=== PATIENT | female | born 1950 | race Caucasian/White ===

== ENCOUNTER 2017-04-27 14:15 | Inpatient (IN) | payer OTHER, MEDICAID ==
[2017-04-27] MEDS ORDERED: IOPAMIDOL (ISOVUE-300) 100 ML BTL ONE (14:34)
[2017-04-27 14:38] LABS: ADD DIFF? YES; ADD MORPH? NO; ADD SCAN? NO; ATYPICAL LYMPHOCYTE FLAG 10 (0-99); FRAGMENT RBC FLAG 0 (0-99); HEMATOCRIT 41.5 % (38.0-47.0); HEMOGLOBIN 13.5 g/dL (12.6-16.3); LEFT SHIFT FLG 30 (0-99); LIPEMIA HEMOLYSIS FLAG 80 (0-99); MEAN CELL HEMOGLOBIN 31.3 pg (27.9-34.1); MEAN CELL HEMOGLOBIN CONCENTR. 32.5 g/dL (32.4-36.7); MEAN CELL VOLUME 96.1 fL (81.5-99.8); PLATELET CLUMPS FLAG 0 (0-99); PLATELET COUNT 309 10^3/uL (150-400); RED BLOOD CELL COUNT 4.32 10^6/uL (4.18-5.33); RED CELL DISTRIBUTION WIDTH 14.1 % (11.5-15.2)
[2017-04-27 14:45] LABS: ANION GAP 11 mEq/L (8-16); CALCIUM 9.6 mg/dL (8.5-10.4); CARBON DIOXIDE 26 mEq/l (22-31); CHLORIDE 103 mEq/L (97-110); ETHANOL SERUM < 10 mg/dL (0-10); GLOMERULAR FILTRATION RATE 56; GLUCOSE 84 mg/dL (70-100); POTASSIUM 4.5 mEq/L (3.5-5.2); SODIUM 140 mEq/L (134-144)
[2017-04-27 14:47] LABS: INR 0.99 (0.83-1.16)
[2017-04-27 14:48] LABS: APTT 43.4 SEC (23.0-38.0)
[2017-04-27] MEDS ORDERED: fentaNYL 100 MCG/2 ML INJ ONE (15:13)
[2017-04-27] MEDS ORDERED: fentaNYL 100 MCG/2 ML INJ IVP ONE ×2 (15:15→15:40)
[2017-04-27 15:35] LABS: PLATELET ESTIMATE ADEQUATE (ADEQ)
[2017-04-27] MEDS ORDERED: TETANUS, DIPHTHERIA TOX (7YR+) 0.5 ML INJ IM ONE (15:38)
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
[2017-04-27] MEDS: NS 1,000 ML IV ONE ×2 (17:00→17:01)
[2017-04-27] MEDS ORDERED: FLUTICASONE NASAL 120 SPRAYS/16 GM MDI EACHNARE PRN (17:51)
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
[2017-04-27] MEDS ORDERED: IBANDRONATE SODIUM 150 MG PO SCH (18:00)
[2017-04-27] MEDS ORDERED: ONDANSETRON 4 MG/2 ML VIAL IVP PRN (18:02)
[2017-04-27] MEDS ORDERED: NALOXONE HCL 0.4 MG/ML INJ IVP PRN (18:02)
[2017-04-27] MEDS ORDERED: NS 1,000 ML IV ONE (18:19)
[2017-04-27] MEDS ORDERED: LIDOCAINE 1% 300 MG/30 ML SDV ONE (18:24)
[2017-04-27 18:53] LABS: HEMATOCRIT 31.4 % (38.0-47.0)
[2017-04-27] MEDS ORDERED: NON-FORMULARY NEW DRUG (Lamotrigine [Lamictal] 200 MG) PO SCH (21:00)
[2017-04-27 23:44] LABS: COLOR YELLOW; LEUKOCYTE ESTERASE,URINE 1+ (NEGATIVE); NITRITE,URINE POSITIVE (NEGATIVE)
[2017-04-28 00:02] LABS: BACTERIA TRACE /hpf (NONE SEEN); MUCUS TRACE /lpf (NONE-1+); RBC,URINE 25-50 /hpf (0-3); WBC,URINE 25-50 /hpf (0-3)
[2017-04-28] MEDS: FAMOTIDINE 20 MG TAB PO SCH ×2 (00:39→20:49)
[2017-04-28] MEDS: PREGABALIN 150 MG CAP PO SCH ×3 (00:39→20:49)
[2017-04-28] MEDS: lamoTRIgine 100 MG TAB PO SCH ×3 (02:06→20:50)
[2017-04-28] MEDS: [UNRECOGNIZED DRUG - OTHER] PO SCH ×3 (02:06→20:51)
[2017-04-28] MEDS: busPIRone 15 MG TAB PO SCH ×3 (02:06→20:49)
[2017-04-28 04:54] LABS: HEMATOCRIT 39.4 % (38.0-47.0); MEAN CELL HEMOGLOBIN 30.4 pg (27.9-34.1); MEAN CELL VOLUME 92.1 fL (81.5-99.8); RED BLOOD CELL COUNT 4.28 10^6/uL (4.18-5.33); RED CELL DISTRIBUTION WIDTH 15.5 % (11.5-15.2)
[2017-04-28 05:09] LABS: ANION GAP 4 mEq/L (8-16); CALCIUM 7.4 mg/dL (8.5-10.4); CARBON DIOXIDE 22 mEq/l (22-31); CHLORIDE 115 mEq/L (97-110); CREATININE 0.8 mg/dL (0.6-1.0); GLOMERULAR FILTRATION RATE > 60; GLUCOSE 120 mg/dL (70-100); POTASSIUM 4.1 mEq/L (3.5-5.2); SODIUM 141 mEq/L (134-144)
[2017-04-28] MEDS ORDERED: FUROSEMIDE 20 MG/2 ML VIAL IVP ONE ×2 (06:13→11:11)
[2017-04-28] MEDS: LEVOTHYROXINE 50 MCG TAB PO SCH (06:39)
[2017-04-28] MEDS ORDERED: NON-FORMULARY NEW DRUG (Omeprazole [Omeprazole] 40 MG) PO SCH (09:00)
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
[2017-04-28] MEDS: SERTRALINE HCL 100 MG TAB PO SCH (09:18)
[2017-04-28] MEDS: PANTOPRAZOLE SODIUM 40 MG TAB PO SCH (09:19)
[2017-04-28] MEDS: ENOXAPARIN 40 MG/0.4 ML SYR SC SCH (09:20)
[2017-04-28] MEDS: oxyCODONE IR 5 MG TAB PO PRN ×3 (10:32→21:01)
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
[2017-04-28] MEDS: DEXMEDETOMIDINE HCL 400 MCG in NS 100 ML IV SCH (15:31)
[2017-04-29] MEDS: LEVOTHYROXINE 50 MCG TAB PO SCH (06:21)
--- NOTE | 2017-04-29 06:59 | SOAPPROG ---
SOAP Progress Note Assessment/Plan: Assessment: sacral fractures multiple spine fractures bilateral feet fractures lacerations Plan: continue slow mobilization will need f/u pelvis xray after patient is able to stand to assess for any pelvic movement she is wbat and rom as tolerated bilateral lower ext dressing change for lacerations to bilateral lower ext no splint for toes fractures currently, ice and elevation only, no evidence of compartment syndrome 04/29/17 06:56 Subjective: mildly conversant pain controlled Objective: Vital Signs Temp Pulse Resp BP Pulse Ox 37.7 C 88 14 102/49 L 93 04/29/17 00:00 04/29/17 06:06 04/29/17 06:06 04/29/17 06:00 04/29/17 06:06 Laboratory Results 04/28/17 04:25 04/28/17 04:25 04/28/17 04/29/17 04/30/17 05:59 05:59 05:59 Intake Total 4493 213 Output Total 650 1705 Balance 3843 -1492 PT 13.0 SEC (12.0-15.0) 04/27/17 14:10 INR 0.99 (0.83-1.16) 04/27/17 14:10 difficult to understand bilateral lower ext dressing clean, dry and intact bilateral lower ext feet swelling limited digital flexion and ext warm and pink no evidence of compartment syndrome diffuse non focal ttp neg homans con ICD10 Worksheet Patient Problems: Problems Problem Status Onset Fracture of transverse process of spine without spinal cord lesion Acute Multiple lacerations Acute Ribs, multiple fractures Acute Sacral fracture, closed Acute
[2017-04-29] MEDS: busPIRone 15 MG TAB PO SCH ×2 (07:59→22:03)
[2017-04-29] MEDS: ENOXAPARIN 40 MG/0.4 ML SYR SC SCH (07:59)
[2017-04-29] MEDS: LACTULOSE 20 GM/30 ML UDCUP PO SCH (07:59)
[2017-04-29] MEDS: oxyCODONE IR 5 MG TAB PO PRN ×3 (08:00→17:05)
[2017-04-29] MEDS: SERTRALINE HCL 100 MG TAB PO SCH (08:00)
[2017-04-29] MEDS: PREGABALIN 150 MG CAP PO SCH ×2 (08:00→22:03)
[2017-04-29] MEDS: PANTOPRAZOLE SODIUM 40 MG TAB PO SCH (08:00)
[2017-04-29] MEDS: lamoTRIgine 100 MG TAB PO SCH ×2 (08:00→22:03)
[2017-04-29] MEDS: [UNRECOGNIZED DRUG - OTHER] PO SCH ×2 (08:44→22:03)
[2017-04-29] MEDS ORDERED: LACTULOSE PO SCH (09:00)
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
--- NOTE | 2017-04-29 11:46 | PDINTPN ---
[facility] Nurse Staff Progress Note Assessment/Plan: Assessment: Hypoxemia: Multifactorial, with bilateral rib fractures/splinting, scoliosis, as well as probable pulmonary edema. Has diuresed, but O2 needs remain high. Tolerates EZPAP, which temporarily improves her sats. Bilateral rib fractures: Non-displaced. Sacral Fractures Thoracic compression fractures. THrombocytopenia: Repeat level pending. No active bleeding apparent. Plan: Check CXR. Repeat CBC to follow platelets, H/H. 04/29/17 11:48 Subjective: Less responsive, less grimacing and crying out with pain. Objective: Vital Signs Temp Pulse Resp BP Pulse Ox 37.7 C 90 23 H 116/57 L 94 04/29/17 08:00 04/29/17 11:00 04/29/17 11:00 04/29/17 11:00 04/29/17 11:00 Laboratory Results 04/28/17 04:25 04/28/17 04:25 04/28/17 04/29/17 04/30/17 05:59 05:59 05:59 Intake Total 4493 213 Output Total 650 1705 Balance 3843 -1492 PT 13.0 SEC (12.0-15.0) 04/27/17 14:10 INR 0.99 (0.83-1.16) 04/27/17 14:10 Physical Exam - Physical Exam General Appearance: obtunded EENT: normal ENT inspection Respiratory: decreased breath sounds Cardiac/Chest: regular rate, rhythm, No edema Abdomen: non-tender, soft Skin: normal color, warm/dry Extremities: other (eccymoses and bandaged dresssings bilateral legs.) Neuro/Psych: No alert, No normal mood/affect, No oriented x 3 ICD10 Worksheet Patient Problems: Problems Problem Status Onset Fracture of transverse process of spine without spinal cord lesion Acute Multiple lacerations Acute Ribs, multiple fractures Acute Sacral fracture, closed Acute
[2017-04-29] MEDS: D5W 1/2 NS W/ 20 KCl/L 1,000 ML IV SCH (16:26)
[2017-04-29] MEDS ORDERED: NS 1,000 ML IV SCH (16:30)
[2017-04-29 17:37] LABS: BASE EXCESS -0.8 mEq/L (-2.5-2.5); BICARBONATE 25 mEq/L (22-26); MEASURED OXYGEN SATURATION 89 % (92-95); PCO2 49 mmHg (34-38); PO2 64 mmHg (65-75); TCO2 26 mEq/L (23-27)
[2017-04-29 17:37] LABS: % IMMATURE GRANULYOCYTES 0.5 % (0.0-1.1); ABSOLUTE IMMATURE GRANULOCYTES 0.05 10^3/uL (0.00-0.10); ADD DIFF? NO; ADD MORPH? NO; ADD SCAN? NO; ATYPICAL LYMPHOCYTE FLAG 0 (0-99); FRAGMENT RBC FLAG 0 (0-99); HEMATOCRIT 31.6 % (38.0-47.0); HEMOGLOBIN 10.4 g/dL (12.6-16.3); LEFT SHIFT FLG 20 (0-99); LIPEMIA HEMOLYSIS FLAG 80 (0-99); MEAN CELL HEMOGLOBIN 30.6 pg (27.9-34.1); MEAN CELL HEMOGLOBIN CONCENTR. 32.9 g/dL (32.4-36.7); MEAN CELL VOLUME 92.9 fL (81.5-99.8); MEAN PLATELET VOLUME 11.4 fL (8.7-11.7); PLATELET CLUMPS FLAG 0 (0-99); PLATELET COUNT 98 10^3/uL (150-400); RED CELL DISTRIBUTION WIDTH 15.5 % (11.5-15.2)
[2017-04-29 17:38] LABS: O2 CONCENTRATIION 98 % (0-100); P/F RATIO 65 RATIO
[2017-04-29] MEDS: FAMOTIDINE 20 MG TAB PO SCH (22:03)
[2017-04-30 04:54] LABS: % IMMATURE GRANULYOCYTES 1.1 % (0.0-1.1); ABSOLUTE IMMATURE GRANULOCYTES 0.11 10^3/uL (0.00-0.10); ABSOLUTE NRBC COUNT 0.02 10^3/uL (0-0.01); ADD DIFF? NO; ADD MORPH? NO; ADD SCAN? NO; ATYPICAL LYMPHOCYTE FLAG 0 (0-99); FRAGMENT RBC FLAG 0 (0-99); LEFT SHIFT FLG 30 (0-99); LIPEMIA HEMOLYSIS FLAG 80 (0-99); MEAN CELL HEMOGLOBIN CONCENTR. 32.3 g/dL (32.4-36.7); MEAN CELL VOLUME 93.1 fL (81.5-99.8); MEAN PLATELET VOLUME 10.5 fL (8.7-11.7); NRBC-AUTO% 0.2 % (0.0-0.2); PLATELET CLUMPS FLAG 0 (0-99); PLATELET COUNT 98 10^3/uL (150-400); RED BLOOD CELL COUNT 3.33 10^6/uL (4.18-5.33); RED CELL DISTRIBUTION WIDTH 15.1 % (11.5-15.2)
[2017-04-30] MEDS: LEVOTHYROXINE 50 MCG TAB PO SCH (06:14)
--- NOTE | 2017-04-30 07:41 | SOAPPROG ---
SOAP Progress Note Assessment/Plan: Assessment: VS STABLE/ AFEBRILE/ HCT 31 MAJOR ISSUE IS PAIN CONTROL CHEST CLEAR/ ABD SOFT/ VS STABLE Plan:SNF PLACEMENT 04/30/17 07:41 04/30/17 16:19 Objective: Vital Signs Temp Pulse Resp BP Pulse Ox 36.4 C 95 22 H 147/59 H 94 04/30/17 04:00 04/30/17 06:00 04/30/17 06:00 04/30/17 06:00 04/30/17 06:00 Laboratory Results 04/30/17 04:20 04/28/17 04:25 04/29/17 04/30/17 05/01/17 05:59 05:59 05:59 Intake Total 213 1046 Output Total 1705 600 Balance -1492 446 PT 13.0 SEC (12.0-15.0) 04/27/17 14:10 INR 0.99 (0.83-1.16) 04/27/17 14:10 ICD10 Worksheet Patient Problems: Problems Problem Status Onset Fracture of transverse process of spine without spinal cord lesion Acute Multiple lacerations Acute Ribs, multiple fractures Acute Sacral fracture, closed Acute
[2017-04-30] MEDS ORDERED: FUROSEMIDE 40 MG/4 ML VIAL IVP ONE (09:22)
--- NOTE | 2017-04-30 09:26 | PDINTPN ---
Cardiopulmonary Specialist Progress Note Assessment/Plan: Assessment: Hypoxemia: Multifactorial, with bilateral rib fractures/splinting, scoliosis, as well as probable pulmonary edema. Has diuresed, but O2 needs remain high. Tolerates EZPAP, which temporarily improves her sats. Now on Vapotherm. Bilateral rib fractures: Non-displaced. Sacral Fractures Thoracic compression fractures. No need for brace/ surgery per NS. Using morphine PRN. Anemia: Hgb trending down. Thrombocytopenia: Low but stable. No active bleeding evident. Plan: Repeat Lasix. Follow CXR. Repeat CBC to follow platelets, H/H. May still require intubation. 04/30/17 09:26 04/30/17 09:27 Subjective: Screams out when being moved. Took some PO fluids yesterday, none today. Objective: Vital Signs Temp Pulse Resp BP Pulse Ox 36.4 C 94 20 94/53 L 95 04/30/17 04:00 04/30/17 07:00 04/30/17 07:00 04/30/17 07:00 04/30/17 07:00 Laboratory Results 04/30/17 04:20 04/28/17 04:25 04/29/17 04/30/17 05/01/17 05:59 05:59 05:59 Intake Total 213 1046 Output Total 1705 600 Balance -1492 446 PT 13.0 SEC (12.0-15.0) 04/27/17 14:10 INR 0.99 (0.83-1.16) 04/27/17 14:10 CXR: Persistent edema/vascular congestion bilaterally. Images reviewed. Laboratory Tests 04/29/17 17:30 pCO2 49 H pO2 64 L Total CO2 26 ABG pH 7.33 L Total O2 Concentration 14.0 O2 Concentration % 98 Physical Exam - Physical Exam General Appearance: alert, no apparent distress EENT: normal ENT inspection Neck: normal inspection Respiratory: lungs clear, normal breath sounds Cardiac/Chest: regular rate, rhythm, No edema Abdomen: normal bowel sounds, non-tender, soft Skin: normal color, warm/dry Extremities: other (abrasions/eccymoses/lacerations bilateral legs) Neuro/Psych: No alert, No normal mood/affect, No oriented x 3 ICD10 Worksheet Patient Problems: Problems Problem Status Onset Fracture of transverse process of spine without spinal cord lesion Acute Multiple lacerations Acute Ribs, multiple fractures Acute Sacral fracture, closed Acute
[2017-04-30] MEDS: ENOXAPARIN 40 MG/0.4 ML SYR SC SCH (09:48)
[2017-04-30] MEDS: KETOROLAC 30 MG/1 ML SDV IVP PRN ×2 (10:55→21:04)
[2017-04-30 13:38] LABS: BICARBONATE 26 mEq/L (22-26); MEASURED OXYGEN SATURATION 92 % (92-95); PCO2 43 mmHg (34-38); PO2 60 mmHg (65-75); TCO2 28 mEq/L (23-27)
[2017-04-30 13:40] LABS: O2 CONCENTRATIION 60 % (0-100); P/F RATIO 100 RATIO
[2017-04-30] MEDS: busPIRone 15 MG TAB PO SCH ×2 (13:43→21:12)
[2017-04-30] MEDS: [UNRECOGNIZED DRUG - OTHER] PO SCH ×2 (13:43→21:13)
[2017-04-30] MEDS: lamoTRIgine 100 MG TAB PO SCH ×2 (13:44→21:12)
[2017-04-30] MEDS: PREGABALIN 150 MG CAP PO SCH ×2 (13:44→21:12)
[2017-04-30] MEDS: PANTOPRAZOLE SODIUM 40 MG TAB PO SCH (13:44)
[2017-04-30] MEDS: SERTRALINE HCL 100 MG TAB PO SCH (13:44)
[2017-04-30] MEDS: D5W 1/2 NS W/ 20 KCl/L 1,000 ML IV SCH ×2 (17:29→18:07)
[2017-04-30] MEDS: FAMOTIDINE 20 MG TAB PO SCH (21:11)
[2017-04-30] MEDS: DEXMEDETOMIDINE HCL 400 MCG in NS 100 ML IV SCH (23:07)
[2017-05-01] MEDS ORDERED: NS 250 ML IV ONE (00:01)
[2017-05-01 02:43] LABS: HEMATOCRIT 24.3 % (38.0-47.0); HEMOGLOBIN 7.9 g/dL (12.6-16.3); MEAN CELL HEMOGLOBIN 30.4 pg (27.9-34.1); MEAN CELL HEMOGLOBIN CONCENTR. 32.5 g/dL (32.4-36.7); MEAN CELL VOLUME 93.5 fL (81.5-99.8); RED BLOOD CELL COUNT 2.6 10^6/uL (4.18-5.33); RED CELL DISTRIBUTION WIDTH 14.7 % (11.5-15.2)
[2017-05-01 02:48] LABS: ANION GAP 5 mEq/L (8-16); CALCIUM 7.6 mg/dL (8.5-10.4); CARBON DIOXIDE 26 mEq/l (22-31); CHLORIDE 108 mEq/L (97-110); CREATININE 0.6 mg/dL (0.6-1.0); GLOMERULAR FILTRATION RATE > 60; GLUCOSE 118 mg/dL (70-100); POTASSIUM 3.8 mEq/L (3.5-5.2); SODIUM 139 mEq/L (134-144)
[2017-05-01] MEDS ORDERED: BACITRACIN OINTMENT 1 PACKET TP ONE (05:19)
[2017-05-01] MEDS: LEVOTHYROXINE 50 MCG TAB PO SCH (05:25)
[2017-05-01] MEDS: D5W 1/2 NS W/ 20 KCl/L 1,000 ML IV SCH (05:35)
--- NOTE | 2017-05-01 06:29 | SOAPPROG ---
SOAP Progress Note Assessment/Plan: Assessment: VS STABLE/ AFEBRILE/ HCT 31 MAJOR ISSUE IS PAIN CONTROL CHEST CLEAR/ ABD SOFT/ VS STABLE Plan:SNF PLACEMENT 04/30/17 07:41 04/30/17 16:19 05/01/17 06:27 NOTIFIED OF PATIENT'S HEMATOCRIT DROPPED AND SOME HYPOTENSION THIS MORNING. PRESENTLY NORMOTENSIVE. CHEST X-RAY YESTERDAY REVEALED A RIGHT PLEURAL EFFUSION AND SHE IS A KNOWN RIGHT PELVIC FRACTURE. DIFFICULT TO ASSESS WHERE SHE COULD BE LOSING BLOOD. PLANS FOLLOW-UP CHEST X-RAY THIS MORNING IN FOLLOW- UP HEMATOCRIT Objective: Vital Signs Temp Pulse Resp BP Pulse Ox 37.2 C 84 22 H 125/65 H 92 05/01/17 04:00 05/01/17 06:00 05/01/17 06:00 05/01/17 06:00 05/01/17 06:00 Laboratory Results 05/01/17 02:13 05/01/17 02:13 04/30/17 05/01/17 05/02/17 05:59 05:59 05:59 Intake Total 1046 1983 Output Total 600 1075 Balance 446 908 PT 13.0 SEC (12.0-15.0) 04/27/17 14:10 INR 0.99 (0.83-1.16) 04/27/17 14:10 ICD10 Worksheet Patient Problems: Problems Problem Status Onset Fracture of transverse process of spine without spinal cord lesion Acute Multiple lacerations Acute Ribs, multiple fractures Acute Sacral fracture, closed Acute
[2017-05-01] MEDS: PANTOPRAZOLE SODIUM 40 MG TAB PO SCH (08:28)
[2017-05-01] MEDS: LACTULOSE 20 GM/30 ML UDCUP PO SCH (08:28)
[2017-05-01] MEDS: PREGABALIN 150 MG CAP PO SCH ×2 (08:28→22:28)
[2017-05-01] MEDS: lamoTRIgine 100 MG TAB PO SCH ×2 (08:28→22:28)
[2017-05-01] MEDS: [UNRECOGNIZED DRUG - OTHER] PO SCH ×2 (08:28→22:28)
[2017-05-01] MEDS: busPIRone 15 MG TAB PO SCH ×2 (08:28→22:27)
[2017-05-01] MEDS: SERTRALINE HCL 100 MG TAB PO SCH (08:29)
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
--- NOTE | 2017-05-01 09:59 | PDINTPN ---
It Network Architect Progress Note Assessment/Plan: Assessment: Hypoxemia: Multifactorial, with bilateral rib fractures/splinting, scoliosis, as well as probable pulmonary edema. I>O, increased pleural effusion. Tolerates EZPAP, which temporarily improves her sats. Now on Vapotherm. Bilateral rib fractures: Non-displaced. Sacral Fractures Thoracic compression fractures. No need for brace/ surgery per NS. Using morphine PRN. Anemia: Hgb trending down. Thrombocytopenia: Low but stable. No active bleeding evident. Pleural effusion: Increased. Likely contributes to hypoxemia. Nutrition: None, and unlikely to be taking significant PO soon. Plan: Repeat Lasix. Follow CXR. Repeat CBC to follow platelets, H/H. Place feeding tube and start TF. May still require intubation. 05/01/17 11:15 05/01/17 11:33 Subjective: Minimally responsive, not answering questions or following commands. Objective: Vital Signs Temp Pulse Resp BP Pulse Ox 37.2 C 84 18 145/71 H 94 05/01/17 07:00 05/01/17 09:00 05/01/17 09:00 05/01/17 09:00 05/01/17 09:00 Laboratory Results 05/01/17 02:13 05/01/17 02:13 04/30/17 05/01/17 05/02/17 05:59 05:59 05:59 Intake Total 1046 1983 Output Total 600 1075 Balance 446 908 PT 13.0 SEC (12.0-15.0) 04/27/17 14:10 INR 0.99 (0.83-1.16) 04/27/17 14:10 CXR: Increased right basilar consolidation. Images reviewed. Physical Exam - Physical Exam General Appearance: alert, no apparent distress EENT: normal ENT inspection Neck: normal inspection Respiratory: lungs clear, normal breath sounds Cardiac/Chest: regular rate, rhythm, No edema Abdomen: normal bowel sounds, non-tender, soft Skin: normal color, warm/dry Extremities: normal inspection Neuro/Psych: alert, normal mood/affect, oriented x 3 ICD10 Worksheet Patient Problems: Problems Problem Status Onset Fracture of transverse process of spine without spinal cord lesion Acute Multiple lacerations Acute Ribs, multiple fractures Acute Sacral fracture, closed Acute
[2017-05-01] MEDS ORDERED: FUROSEMIDE 20 MG/2 ML VIAL IVP ONE (10:08)
[2017-05-01 10:31] LABS: HEMATOCRIT 25.5 % (38.0-47.0); HEMOGLOBIN 8.6 g/dL (12.6-16.3)
[2017-05-01 10:42] LABS: INR 1.27 (0.83-1.16); PROTIME(PATIENT) 15.9 SEC (12.0-15.0)
[2017-05-01 10:50] LABS: APTT 49.3 SEC (23.0-38.0)
[2017-05-01 11:37] LABS: COLOR AMBER; LEUKOCYTE ESTERASE,URINE 3+ (NEGATIVE); NITRITE,URINE NEGATIVE (NEGATIVE)
[2017-05-01 11:42] LABS: BACTERIA 2+ /hpf (NONE SEEN); MUCUS 2+ /lpf (NONE-1+); WBC,URINE 25-50 /hpf (0-3)
[2017-05-01] MEDS ORDERED: LIDOCAINE 1% 300 MG/30 ML SDV ONE (12:06)
[2017-05-01] MEDS ORDERED: HALOPERIDOL LACT 5 MG/ML INJ ONE (15:41)
[2017-05-01] MEDS: HALOPERIDOL LACT 5 MG/ML INJ IVP PRN (15:54)
--- NOTE | 2017-05-01 16:00 | SOAPPROG ---
SOAP Progress Note Assessment/Plan: Assessment: sacral fractures multiple spine fractures bilateral feet fractures lacerations Plan: continue slow mobilization will need f/u pelvis xray after patient is able to stand to assess for any pelvic movement she is wbat and rom as tolerated bilateral lower ext dressing change for lacerations to bilateral lower ext no splint for toes fractures currently, ice and elevation only, no evidence of compartment syndrome unable to assess further, agitated will follow 04/29/17 06:56 05/01/17 15:57 Subjective: unable to converse Objective: Vital Signs Temp Pulse Resp BP Pulse Ox 37.2 C 84 23 H 121/60 H 95 05/01/17 07:00 05/01/17 12:00 05/01/17 12:00 05/01/17 12:00 05/01/17 12:00 Laboratory Results 05/01/17 10:15 05/01/17 02:13 04/30/17 05/01/17 05/02/17 05:59 05:59 05:59 Intake Total 1046 1983 391 Output Total 600 1075 900 Balance 446 908 -509 PT 15.9 SEC (12.0-15.0) H 05/01/17 10:15 INR 1.27 (0.83-1.16) H 05/01/17 10:15 agitated heel cup pads in place, decreased swelling and ecchymosis to toes moaning and stirring in bed ICD10 Worksheet Patient Problems: Problems Problem Status Onset Fracture of transverse process of spine without spinal cord lesion Acute Multiple lacerations Acute Ribs, multiple fractures Acute Sacral fracture, closed Acute
[2017-05-01 17:58] LABS: HEMATOCRIT 23.6 % (38.0-47.0); HEMOGLOBIN 7.9 g/dL (12.6-16.3)
[2017-05-01] MEDS: DEXMEDETOMIDINE HCL 400 MCG in NS 100 ML IV SCH (20:00)
[2017-05-01] MEDS: FAMOTIDINE 20 MG TAB PO SCH (22:28)
[2017-05-01] MEDS: KETOROLAC 30 MG/1 ML SDV IVP PRN (22:59)
[2017-05-02] MEDS: HALOPERIDOL LACT 5 MG/ML INJ IVP PRN ×3 (00:08→21:56)
[2017-05-02] MEDS: DEXMEDETOMIDINE HCL 400 MCG in NS 100 ML IV SCH ×2 (05:01)
[2017-05-02] MEDS ORDERED: BACITRACIN OINTMENT 1 PACKET TP ONE (05:49)
[2017-05-02] MEDS: LEVOTHYROXINE 50 MCG TAB PO SCH (06:08)
[2017-05-02 06:17] LABS: HEMATOCRIT 24.7 % (38.0-47.0); HEMOGLOBIN 8.2 g/dL (12.6-16.3); MEAN CELL HEMOGLOBIN 30.6 pg (27.9-34.1); MEAN CELL HEMOGLOBIN CONCENTR. 33.2 g/dL (32.4-36.7); MEAN CELL VOLUME 92.2 fL (81.5-99.8); RED BLOOD CELL COUNT 2.68 10^6/uL (4.18-5.33); RED CELL DISTRIBUTION WIDTH 14.5 % (11.5-15.2)
[2017-05-02] MEDS: busPIRone 15 MG TAB PO SCH (08:43)
[2017-05-02] MEDS: PANTOPRAZOLE SODIUM 40 MG TAB PO SCH (08:44)
[2017-05-02] MEDS: lamoTRIgine 100 MG TAB PO SCH (08:44)
[2017-05-02] MEDS: SERTRALINE HCL 100 MG TAB PO SCH (08:45)
[2017-05-02] MEDS: PREGABALIN 150 MG CAP PO SCH (08:45)
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
[2017-05-02] MEDS: oxyCODONE IR 5 MG TAB PO PRN ×2 (09:28→13:47)
[2017-05-02] MEDS: [UNRECOGNIZED DRUG - OTHER] PO SCH (09:29)
[2017-05-02] MEDS ORDERED: FUROSEMIDE 20 MG/2 ML VIAL IVP ONE (15:54)
--- NOTE | 2017-05-02 15:56 | PDINTPN ---
Manager Integration Progress Note Assessment/Plan: Assessment: Hypoxemia: Multifactorial, with bilateral rib fractures/splinting, scoliosis, as well as probable pulmonary edema. I>O, increased pleural effusion. On Vapotherm. Bilateral rib fractures: Non-displaced. Sacral Fractures Thoracic compression fractures. No need for brace/ surgery per NS. Using morphine PRN. Anemia: Hgb stable for 2 days. Thrombocytopenia: Low but stable. No active bleeding evident. Pleural effusion: Increased. Likely contributes to hypoxemia. Nutrition: None, and unlikely to be taking significant PO soon. Plan: Repeat Lasix. Follow CXR. Repeat CBC to follow platelets, H/H. Feeding tube placed. Will start TF. May still require intubation. 05/02/17 15:57 Subjective: Not responding to questions. Makes eye contact. Objective: Vital Signs Temp Pulse Resp BP Pulse Ox 37.4 C 63 19 122/63 H 95 05/02/17 08:00 05/02/17 12:00 05/02/17 12:00 05/02/17 12:00 05/02/17 12:00 Laboratory Results 05/02/17 06:00 05/01/17 02:13 05/01/17 05/02/17 05/03/17 05:59 05:59 05:59 Intake Total 1983 391 325 Output Total 1075 1400 Balance 908 -1009 325 PT 15.9 SEC (12.0-15.0) H 05/01/17 10:15 INR 1.27 (0.83-1.16) H 05/01/17 10:15 CXR: Unchanged infiltrates and pleural effusion. Images reviewed. Physical Exam - Physical Exam General Appearance: alert, moderate distress EENT: normal ENT inspection Neck: normal inspection Respiratory: normal breath sounds, rales, No lungs clear Cardiac/Chest: regular rate, rhythm, No edema Abdomen: normal bowel sounds, non-tender, soft Skin: normal color, warm/dry Extremities: normal inspection Neuro/Psych: alert, other (episodic bilateral clonic movements without LOC.), No normal mood/affect, No oriented x 3, No motor weakness ICD10 Worksheet Patient Problems: Problems Problem Status Onset Fracture of transverse process of spine without spinal cord lesion Acute Multiple lacerations Acute Ribs, multiple fractures Acute Sacral fracture, closed Acute
[2017-05-02 16:26] LABS: COLOR AMBER; LEUKOCYTE ESTERASE,URINE 3+ (NEGATIVE); NITRITE,URINE NEGATIVE (NEGATIVE)
[2017-05-02 16:37] LABS: AMORPHOUS PRESENT /hpf (NONE-1+); BACTERIA 2+ /hpf (NONE SEEN); MUCUS TRACE /lpf (NONE-1+); WBC,URINE 25-50 /hpf (0-3)
[2017-05-02] MEDS ORDERED: MELATONIN 3 MG TAB PO SCH (21:00)
[2017-05-03] MEDS: busPIRone 15 MG TAB PO SCH (01:05)
[2017-05-03] MEDS: FAMOTIDINE 20 MG TAB PO SCH (01:06)
[2017-05-03] MEDS: PREGABALIN 150 MG CAP PO SCH (01:06)
[2017-05-03] MEDS: lamoTRIgine 100 MG TAB PO SCH (01:06)
[2017-05-03] MEDS: DEXMEDETOMIDINE HCL 400 MCG in NS 100 ML IV SCH ×5 (02:57→21:41)
[2017-05-03] MEDS ORDERED: BACITRACIN OINTMENT 1 PACKET TP ONE (05:30)
[2017-05-03] MEDS: LEVOTHYROXINE 50 MCG TAB PO SCH (07:55)
[2017-05-03 08:46] LABS: BASE EXCESS 4.8 mEq/L (-2.5-2.5); BICARBONATE 29 mEq/L (22-26); MEASURED OXYGEN SATURATION 98 % (92-95); PCO2 41 mmHg (34-38); PO2 98 mmHg (65-75); TCO2 30 mEq/L (23-27)
[2017-05-03 08:48] LABS: HEMATOCRIT 23.5 % (38.0-47.0); HEMOGLOBIN 7.9 g/dL (12.6-16.3); MEAN CELL HEMOGLOBIN CONCENTR. 33.6 g/dL (32.4-36.7); MEAN CELL VOLUME 92.2 fL (81.5-99.8); RED BLOOD CELL COUNT 2.55 10^6/uL (4.18-5.33); RED CELL DISTRIBUTION WIDTH 14.6 % (11.5-15.2)
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
[2017-05-03 09:11] LABS: ALANINE AMINOTRANSFERASE 43 IU/L (9-52); ALBUMIN 2.8 g/dL (3.5-5.0); ALKALINE PHOSPHATASE 84 IU/L (38-126); ANION GAP 7 mEq/L (8-16); ASPARTATE AMINOTRANSFERASE 40 IU/L (14-46); BILIRUBIN,TOTAL 2.5 mg/dL (0.1-1.4); CALCIUM 8.6 mg/dL (8.5-10.4); CARBON DIOXIDE 29 mEq/l (22-31); CHLORIDE 103 mEq/L (97-110); CREATININE 0.6 mg/dL (0.6-1.0); GLOMERULAR FILTRATION RATE > 60; GLUCOSE 96 mg/dL (70-100); POTASSIUM 2.8 mEq/L (3.5-5.2); SODIUM 139 mEq/L (134-144); TOTAL PROTEIN 5.4 g/dL (6.3-8.2)
[2017-05-03 09:17] LABS: BILIRUBIN-CONJUGATED 1.2 mg/dL (0.0-0.5); BILIRUBIN-UNCONJUGATED 1.3 mg/dL (0.0-1.1)
[2017-05-03] MEDS: FAMOTIDINE 20 MG/NACL 50 ML IV SCH (09:40)
[2017-05-03] MEDS: HALOPERIDOL LACT 5 MG/ML INJ IVP PRN (11:01)
--- NOTE | 2017-05-03 13:00 | PDINTPN ---
Corset Maker Progress Note Assessment/Plan: Assessment: Hypoxemia: Multifactorial, with bilateral rib fractures/splinting, scoliosis, as well as probable pulmonary edema. Diuresed yesterday with Lasix. On Vapotherm. Bilateral rib fractures: Non-displaced. Sacral Fractures Thoracic compression fractures. No need for brace/ surgery per NS. Using morphine PRN. Anemia: Hgb stable for 3 days. Thrombocytopenia: Resolved Pleural effusion: Increased. Likely contributes to hypoxemia. Nutrition: None, and unlikely to be taking significant PO soon. Probable UTI: Pyuria with 2xGNR on culture. Could contribute to delerium. Delerium: Has cognitive deficit at baseline due to anoxic injury, but currently not at baseline. Hypokalemia Plan: Repeat Lasix. Replace K+. Follow CXR. Follow H/H. Start Levaquin. Feeding tube clogged/replaced, will resume TF. May still require intubation. 05/03/17 13:03 Subjective: Non-verbal, not following commands. Objective: Vital Signs Temp Pulse Resp BP Pulse Ox 36.8 C 62 16 141/63 H 97 05/03/17 12:00 05/03/17 12:00 05/03/17 12:00 05/03/17 12:00 05/03/17 12:00 Laboratory Results 05/03/17 08:25 05/03/17 08:25 05/02/17 05/03/17 05/04/17 05:59 05:59 05:59 Intake Total 391 564 Output Total 1400 2900 Balance -1009 -2336 PT 15.9 SEC (12.0-15.0) H 05/01/17 10:15 INR 1.27 (0.83-1.16) H 05/01/17 10:15 Microbiology 05/02/17 02:40 Urine,Catheterized Urine Culture - Preliminary Gram Neg Linus Nonlactose Ferm. Gram Neg Linus Lactose Php Engineer Physical Exam - Physical Exam General Appearance: alert, no apparent distress EENT: normal ENT inspection Neck: normal inspection Respiratory: crackles (bases), No normal breath sounds Cardiac/Chest: regular rate, rhythm, No edema Abdomen: normal bowel sounds, non-tender, soft Skin: normal color, warm/dry Extremities: normal inspection Neuro/Psych: alert, No normal mood/affect, No oriented x 3 ICD10 Worksheet Patient Problems: Problems Problem Status Onset Fracture of transverse process of spine without spinal cord lesion Acute Multiple lacerations Acute Ribs, multiple fractures Acute Sacral fracture, closed Acute
[2017-05-03] MEDS ORDERED: FUROSEMIDE 20 MG/2 ML VIAL IVP ONE (13:06)
[2017-05-03] MEDS ORDERED: PROTOCOL MAGNESIUM 1 DOSE IV PRN (13:09)
[2017-05-03] MEDS ORDERED: PROTOCOL POTASSIUM 1 DOSE MISC PRN (13:09)
--- NOTE | 2017-05-03 13:52 | SOAPPROG ---
SOAP Progress Note Assessment/Plan: Assessment: sacral fractures multiple spine fractures bilateral feet fractures lacerations Plan: continue slow mobilization will need f/u pelvis xray after patient is able to stand to assess for any pelvic movement she is wbat and rom as tolerated bilateral lower ext dressing change for lacerations to bilateral lower ext no splint for toes fractures currently, ice and elevation only, no evidence of compartment syndrome unable to assess further, agitated will follow 04/29/17 06:56 05/01/17 15:57 Subjective: friends at bedside Objective: Vital Signs Temp Pulse Resp BP Pulse Ox 36.3 C 56 L 19 141/63 H 98 05/03/17 12:27 05/03/17 12:27 05/03/17 12:27 05/03/17 12:27 05/03/17 12:27 Laboratory Results 05/03/17 08:25 05/03/17 08:25 05/02/17 05/03/17 05/04/17 05:59 05:59 05:59 Intake Total 391 564 Output Total 1400 2900 Balance -1009 -2336 PT 15.9 SEC (12.0-15.0) H 05/01/17 10:15 INR 1.27 (0.83-1.16) H 05/01/17 10:15 pelvis not examined agitated decreased swelling bilateral feet not coherent ICD10 Worksheet Patient Problems: Problems Problem Status Onset Fracture of transverse process of spine without spinal cord lesion Acute Multiple lacerations Acute Ribs, multiple fractures Acute Sacral fracture, closed Acute
[2017-05-03] MEDS ORDERED: POTASSIUM CL 20 MEQ/15 ML UDCUP PO ONE (14:30)
[2017-05-03] MEDS ORDERED: ALTEPLASE 2 MG VIAL IVP PRN (15:19)
[2017-05-03] MEDS: oxyCODONE IR 5 MG TAB TUBE PRN ×3 (15:42→22:25)
[2017-05-03] MEDS: LACTULOSE 20 GM/30 ML UDCUP TUBE SCH (15:43)
[2017-05-03] MEDS: lamoTRIgine 100 MG TAB TUBE SCH ×2 (15:43→22:22)
[2017-05-03] MEDS: SERTRALINE HCL 100 MG TAB TUBE SCH (15:43)
[2017-05-03] MEDS: busPIRone 15 MG TAB TUBE SCH ×2 (15:43→22:22)
[2017-05-03] MEDS: PREGABALIN 150 MG CAP TUBE SCH ×2 (15:44→22:22)
[2017-05-03] MEDS ORDERED: FUROSEMIDE 20 MG/2 ML VIAL ONE (16:46)
[2017-05-03] MEDS: ENOXAPARIN 40 MG/0.4 ML SYR SC SCH (17:52)
[2017-05-03 18:58] LABS: POTASSIUM 3.1 mEq/L (3.5-5.2)
[2017-05-03] MEDS: POTASSIUM Cl (KCl) 50 ML IV SCH ×2 (22:19→23:46)
[2017-05-03] MEDS: MELATONIN 3 MG TAB TUBE SCH (22:21)
[2017-05-04] MEDS: DEXMEDETOMIDINE HCL 400 MCG in NS 100 ML IV SCH ×3 (00:37→19:52)
[2017-05-04 05:25] LABS: MAGNESIUM 1.9 mg/dL (1.6-2.3); POTASSIUM 3.4 mEq/L (3.5-5.2)
[2017-05-04] MEDS: LEVOTHYROXINE 50 MCG TAB TUBE SCH (06:31)
[2017-05-04] MEDS: POTASSIUM Cl (KCl) 50 ML IV SCH ×4 (08:56→12:15)
[2017-05-04] MEDS: LACTULOSE 20 GM/30 ML UDCUP TUBE SCH (10:17)
[2017-05-04] MEDS: lamoTRIgine 100 MG TAB TUBE SCH ×2 (10:17→22:01)
[2017-05-04] MEDS: busPIRone 15 MG TAB TUBE SCH ×2 (10:17→22:02)
[2017-05-04] MEDS: FAMOTIDINE 20 MG/NACL 50 ML IV SCH (10:18)
[2017-05-04] MEDS: ENOXAPARIN 40 MG/0.4 ML SYR SC SCH (10:18)
[2017-05-04] MEDS: PREGABALIN 150 MG CAP TUBE SCH ×2 (10:53→22:02)
[2017-05-04] MEDS: oxyCODONE IR 5 MG TAB TUBE PRN ×3 (10:53→22:01)
[2017-05-04] MEDS: SERTRALINE HCL 100 MG TAB TUBE SCH (10:53)
--- NOTE | 2017-05-04 12:01 | PDINTPN ---
Dental Laboratory Technology Teacher Progress Note Assessment/Plan: Assessment: Hypoxemia: Multifactorial, with bilateral rib fractures/splinting, scoliosis, probable pulmonary edema, possible aspiration? On lasix, Vapotherm. Bilateral rib fractures: Non-displaced. Sacral Fractures Thoracic compression fractures. No need for brace/ surgery per NS. Using morphine PRN. Anemia: Hct 23, stable Thrombocytopenia: Resolved Pleural effusion: Small, persistent Nutrition: On tube feedings Probable UTI: Pyuria due to Proteus. Multiply sensitive. On Levaquin. Will switch antibiotics to cover aspiration as well. Delirium: Has cognitive deficit and psychiatric issues at baseline due to distant anoxic injury. Nonverbal currently, apparently is quite verbal at baseline and sharp. Likely multifactorial and related to medications, multiple injuries, etc. No evidence definitive head trauma or recurrent anoxic event. No evidence of seizures. Metabolic: Hypokalemia. On replacement protocols DVT prophylaxis: On enoxaparin Plan: Continue care in the intensive care unit. Repeat Lasix. Replace K+. Follow CXR. Follow H/H. Discontinue Levaquin., start ertapenem. Continue TFs. May still require intubation. Decreased sedatives and pain medications as much as possible. Continue antipsychotic medications per NG. 35 minutes of critical care time spent directly with the patient. Discussed with a patient caregiver, Trauma surgery, nursing, respiratory, and the ICU multi disciplinary team. Subjective: Looks to voice, remains nonverbal but tries to talk with stimulation Objective: Vital Signs Temp Pulse Resp BP Pulse Ox 36.4 C 93 27 H 116/66 100 05/04/17 11:46 05/04/17 11:46 05/04/17 11:46 05/04/17 11:46 05/04/17 11:46 Laboratory Results 05/03/17 08:25 05/04/17 04:40 05/03/17 05/04/17 05/05/17 05:59 05:59 05:59 Intake Total 564 2086 Output Total 2900 1600 Balance -2336 486 PT 15.9 SEC (12.0-15.0) H 05/01/17 10:15 INR 1.27 (0.83-1.16) H 05/01/17 10:15 Laboratory Tests 05/03/17 05/03/17 05/04/17 08:25 08:30 04:40 pCO2 41 H ABG pH 7.46 H ABG O2 Saturation 98 H Potassium 3.4 L Chloride 103 Magnesium 1.9 CXR: Bilateral infiltrates persist, right greater than left Physical Exam - Physical Exam General Appearance: no apparent distress, unresponsive (Looks to voice,) EENT: PERRL/EOMI (Can't assess, close her eyes tightly), other (Nasal cannula in place at 1-2 L) Neck: normal inspection Respiratory: lungs clear (Anteriorly), decreased breath sounds (At bases, few rales at left base), rales, No rhonchi, No wheezing Cardiac/Chest: regular rate, rhythm Abdomen: normal bowel sounds, non-tender, soft Pelvic Exam: other (Calixto catheter in place, good diuresis over the last 3 days. ) Skin: warm/dry, pallor, other (Evolving areas of ecchymoses over feet, elsewhere , abrasions, etc) Extremities: pedal edema Neuro/Psych: no motor/sensory deficits (Appears to be nonfocal, moves extremities equally but has a tremor), cognition abnormalities (Altered/ decreased mental status persists. On Precedex.), No oriented x 3 ICD10 Worksheet Patient Problems: Problems Problem Status Onset Fracture of transverse process of spine without spinal cord lesion Acute Multiple lacerations Acute Ribs, multiple fractures Acute Sacral fracture, closed Acute
[2017-05-04] MEDS: ERTAPENEM 1 GM in NS 100 ML IV SCH (12:13)
[2017-05-04] MEDS ORDERED: FUROSEMIDE 20 MG/2 ML VIAL IVP ONE (12:14)
[2017-05-04 14:24] LABS: POTASSIUM 3.9 mEq/L (3.5-5.2)
[2017-05-04] MEDS ORDERED: POTASSIUM Cl (KCl) 50 ML IV ONE (15:04)
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
--- NOTE | 2017-05-04 19:15 | SOAPPROG ---
SOAP Progress Note Assessment/Plan: Assessment: VS STABLE/ AFEBRILE/ HCT 31 MAJOR ISSUE IS PAIN CONTROL CHEST CLEAR/ ABD SOFT/ VS STABLE Plan:SNF PLACEMENT 04/30/17 07:41 04/30/17 16:19 05/01/17 06:27 NOTIFIED OF PATIENT'S HEMATOCRIT DROPPED AND SOME HYPOTENSION THIS MORNING. PRESENTLY NORMOTENSIVE. CHEST X-RAY YESTERDAY REVEALED A RIGHT PLEURAL EFFUSION AND SHE IS A KNOWN RIGHT PELVIC FRACTURE. DIFFICULT TO ASSESS WHERE SHE COULD BE LOSING BLOOD. PLANS FOLLOW-UP CHEST X-RAY THIS MORNING IN FOLLOW- UP HEMATOCRIT 05/04/17 19:12 SEEN EARLIER TODAY WITH MY PA AND IT INTERDISCIPLINARY ROUNDS/NOT MUCH CHANGED PATIENT IS ON PRECEDEX/SHE IS REQUIRING OXYGEN/ CHEST X-RAY REVEALS A RIGHT PLEURAL EFFUSION HEMATOCRIT IS 24/COAGS WERE SLIGHTLY OFF MAY NEED TO CONSIDER RIGHT CHEST TUBE FOR DRAINAGE OF POSSIBLE HEMOTHORAX/WILL ORDER ULTRASOUND IN THE A.M. Objective: Vital Signs Temp Pulse Resp BP Pulse Ox 36.7 C 98 20 109/94 H 92 05/04/17 16:00 05/04/17 16:00 05/04/17 16:00 05/04/17 16:00 05/04/17 16:00 Laboratory Results 05/03/17 08:25 05/04/17 17:50 05/03/17 05/04/17 05/05/17 05:59 05:59 05:59 Intake Total 564 2086 1356 Output Total 2900 1600 550 Balance -2336 486 806 PT 15.9 SEC (12.0-15.0) H 05/01/17 10:15 INR 1.27 (0.83-1.16) H 05/01/17 10:15 ICD10 Worksheet Patient Problems: Problems Problem Status Onset Fracture of transverse process of spine without spinal cord lesion Acute Multiple lacerations Acute Ribs, multiple fractures Acute Sacral fracture, closed Acute
[2017-05-04] MEDS: MELATONIN 3 MG TAB TUBE SCH (22:02)
[2017-05-04] MEDS ORDERED: PROTOCOL POTASSIUM 1 DOSE MISC PRN (22:32)
[2017-05-05] MEDS: oxyCODONE IR 5 MG TAB TUBE PRN ×3 (02:13→16:36)
[2017-05-05 05:50] LABS: % IMMATURE GRANULYOCYTES 2.6 % (0.0-1.1); ABSOLUTE IMMATURE GRANULOCYTES 0.27 10^3/uL (0.00-0.10); ABSOLUTE NRBC COUNT 0.06 10^3/uL (0-0.01); ADD DIFF? NO; ADD MORPH? NO; ADD SCAN? NO; ATYPICAL LYMPHOCYTE FLAG 0 (0-99); FRAGMENT RBC FLAG 0 (0-99); HEMOGLOBIN 8.5 g/dL (12.6-16.3); LEFT SHIFT FLG 20 (0-99); LIPEMIA HEMOLYSIS FLAG 80 (0-99); MEAN CELL HEMOGLOBIN 30.6 pg (27.9-34.1); MEAN CELL HEMOGLOBIN CONCENTR. 31.5 g/dL (32.4-36.7); MEAN CELL VOLUME 97.1 fL (81.5-99.8); MEAN PLATELET VOLUME 10.2 fL (8.7-11.7); NRBC-AUTO% 0.6 % (0.0-0.2); PLATELET CLUMPS FLAG 0 (0-99); PLATELET COUNT 297 10^3/uL (150-400); RED BLOOD CELL COUNT 2.78 10^6/uL (4.18-5.33); RED CELL DISTRIBUTION WIDTH 15.9 % (11.5-15.2)
[2017-05-05 06:00] LABS: ALANINE AMINOTRANSFERASE 42 IU/L (9-52); ALBUMIN 3.1 g/dL (3.5-5.0); ALKALINE PHOSPHATASE 103 IU/L (38-126); ANION GAP 7 mEq/L (8-16); ASPARTATE AMINOTRANSFERASE 37 IU/L (14-46); BILIRUBIN,TOTAL 1.7 mg/dL (0.1-1.4); CALCIUM 8.8 mg/dL (8.5-10.4); CARBON DIOXIDE 30 mEq/l (22-31); CHLORIDE 106 mEq/L (97-110); CREATININE 0.7 mg/dL (0.6-1.0); GLOMERULAR FILTRATION RATE > 60; GLUCOSE 147 mg/dL (70-100); MAGNESIUM 2.5 mg/dL (1.6-2.3); POTASSIUM 3.8 mEq/L (3.5-5.2); SODIUM 143 mEq/L (134-144); TOTAL PROTEIN 5.4 g/dL (6.3-8.2)
[2017-05-05] MEDS: LEVOTHYROXINE 50 MCG TAB TUBE SCH (06:33)
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
[2017-05-05] MEDS: busPIRone 15 MG TAB TUBE SCH ×2 (09:12→22:45)
[2017-05-05] MEDS: SERTRALINE HCL 100 MG TAB TUBE SCH (09:12)
[2017-05-05] MEDS: ERTAPENEM 1 GM in NS 100 ML IV SCH (09:12)
[2017-05-05] MEDS: lamoTRIgine 100 MG TAB TUBE SCH ×2 (09:12→22:45)
[2017-05-05] MEDS: PREGABALIN 150 MG CAP TUBE SCH ×2 (09:12→22:45)
[2017-05-05] MEDS: FAMOTIDINE 20 MG/NACL 50 ML IV SCH (09:12)
[2017-05-05] MEDS: ENOXAPARIN 40 MG/0.4 ML SYR SC SCH (09:25)
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
[2017-05-05] MEDS ORDERED: FUROSEMIDE 20 MG/2 ML VIAL IVP ONE ×2 (13:34→15:45)
[2017-05-05] MEDS: ALBUTEROL 3 ML DEYVIAL IH SCH ×3 (13:37→20:28)
[2017-05-05] MEDS ORDERED: POTASSIUM Cl (KCl) 50 ML IV ONE (14:14)
[2017-05-05 20:26] LABS: POTASSIUM 4.1 mEq/L (3.5-5.2)
[2017-05-05] MEDS: MELATONIN 3 MG TAB TUBE SCH (22:44)
[2017-05-06 04:03] LABS: ABSOLUTE NRBC COUNT 0.13 10^3/uL (0-0.01); ADD DIFF? YES; ADD SCAN? NO; ATYPICAL LYMPHOCYTE FLAG 0 (0-99); FRAGMENT RBC FLAG 0 (0-99); HEMATOCRIT 28.1 % (38.0-47.0); HEMOGLOBIN 8.8 g/dL (12.6-16.3); LEFT SHIFT FLG 20 (0-99); LIPEMIA HEMOLYSIS FLAG 80 (0-99); MEAN CELL HEMOGLOBIN 30.9 pg (27.9-34.1); MEAN CELL HEMOGLOBIN CONCENTR. 31.3 g/dL (32.4-36.7); MEAN CELL VOLUME 98.6 fL (81.5-99.8); MEAN PLATELET VOLUME 10.4 fL (8.7-11.7); PLATELET CLUMPS FLAG 10 (0-99); PLATELET COUNT 257 10^3/uL (150-400); RED BLOOD CELL COUNT 2.85 10^6/uL (4.18-5.33); RED CELL DISTRIBUTION WIDTH 16.7 % (11.5-15.2)
[2017-05-06 04:12] LABS: ADD MORPH? NO; NRBC-AUTO% 1.2 % (0.0-0.2)
[2017-05-06 04:22] LABS: ANION GAP 7 mEq/L (8-16); CALCIUM 9.1 mg/dL (8.5-10.4); CARBON DIOXIDE 29 mEq/l (22-31); CHLORIDE 105 mEq/L (97-110); CREATININE 0.7 mg/dL (0.6-1.0); GLOMERULAR FILTRATION RATE > 60; GLUCOSE 125 mg/dL (70-100); MAGNESIUM 2.7 mg/dL (1.6-2.3); POTASSIUM 4.1 mEq/L (3.5-5.2); SODIUM 141 mEq/L (134-144)
[2017-05-06 04:37] LABS: PLATELET ESTIMATE ADEQUATE (ADEQ)
[2017-05-06 04:38] LABS: GIANT PLATELETS PRESENT; MACROCYTES 1+; POLYCHROMASIA 1+
[2017-05-06] MEDS: ALBUTEROL 3 ML DEYVIAL IH SCH ×4 (05:23→20:57)
[2017-05-06] MEDS: LEVOTHYROXINE 50 MCG TAB TUBE SCH (05:48)
[2017-05-06] MEDS: ERTAPENEM 1 GM in NS 100 ML IV SCH (08:40)
[2017-05-06] MEDS: ENOXAPARIN 40 MG/0.4 ML SYR SC SCH (08:40)
[2017-05-06] MEDS: FAMOTIDINE 20 MG/NACL 50 ML IV SCH (08:40)
[2017-05-06] MEDS: PREGABALIN 150 MG CAP TUBE SCH ×2 (08:41→21:16)
[2017-05-06] MEDS: SERTRALINE HCL 100 MG TAB TUBE SCH (08:41)
[2017-05-06] MEDS: busPIRone 15 MG TAB TUBE SCH ×2 (08:41→21:16)
[2017-05-06] MEDS: lamoTRIgine 100 MG TAB TUBE SCH ×2 (08:41→21:16)
[2017-05-06] MEDS: oxyCODONE IR 5 MG TAB TUBE PRN ×2 (08:42→18:03)
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
[2017-05-06] MEDS ORDERED: FUROSEMIDE 20 MG/2 ML VIAL IVP ONE (16:41)
[2017-05-06 18:32] LABS: POTASSIUM 4.3 mEq/L (3.5-5.2)
[2017-05-06] MEDS: MELATONIN 3 MG TAB TUBE SCH (21:16)
[2017-05-07] MEDS: oxyCODONE IR 5 MG TAB TUBE PRN (04:17)
[2017-05-07] MEDS: LEVOTHYROXINE 50 MCG TAB TUBE SCH (05:34)
[2017-05-07] MEDS: ALBUTEROL 3 ML DEYVIAL IH SCH ×2 (05:35→11:55)
[2017-05-07 05:38] LABS: % IMMATURE GRANULYOCYTES 2.9 % (0.0-1.1); ABSOLUTE IMMATURE GRANULOCYTES 0.29 10^3/uL (0.00-0.10); ABSOLUTE NRBC COUNT 0.11 10^3/uL (0-0.01); ADD DIFF? NO; ADD MORPH? YES; ADD SCAN? NO; ATYPICAL LYMPHOCYTE FLAG 0 (0-99); FRAGMENT RBC FLAG 0 (0-99); HEMATOCRIT 28.5 % (38.0-47.0); LEFT SHIFT FLG 20 (0-99); LIPEMIA HEMOLYSIS FLAG 80 (0-99); MEAN CELL HEMOGLOBIN 31.6 pg (27.9-34.1); MEAN CELL HEMOGLOBIN CONCENTR. 31.6 g/dL (32.4-36.7); MEAN PLATELET VOLUME 10.5 fL (8.7-11.7); PLATELET CLUMPS FLAG 20 (0-99); PLATELET COUNT 169 10^3/uL (150-400); RED BLOOD CELL COUNT 2.85 10^6/uL (4.18-5.33); RED CELL DISTRIBUTION WIDTH 17.4 % (11.5-15.2)
[2017-05-07 05:40] LABS: NRBC-AUTO% 1.1 % (0.0-0.2)
[2017-05-07 05:54] LABS: ANION GAP 7 mEq/L (8-16); CALCIUM 8.7 mg/dL (8.5-10.4); CARBON DIOXIDE 31 mEq/l (22-31); CHLORIDE 102 mEq/L (97-110); CREATININE 0.7 mg/dL (0.6-1.0); GLOMERULAR FILTRATION RATE > 60; GLUCOSE 128 mg/dL (70-100); MAGNESIUM 2.6 mg/dL (1.6-2.3); POTASSIUM 4.5 mEq/L (3.5-5.2); SODIUM 140 mEq/L (134-144)
[2017-05-07 05:56] LABS: MACROCYTES 1+; PLATELET ESTIMATE ADEQUATE (ADEQ); POLYCHROMASIA 1+; STOMATOCYTES 1+
[2017-05-07 07:38] VITALS: PULSE 100
[2017-05-07] MEDS: ERTAPENEM 1 GM in NS 100 ML IV SCH (08:00)
[2017-05-07] MEDS: FAMOTIDINE 20 MG/NACL 50 ML IV SCH (08:02)
[2017-05-07] MEDS: LACTULOSE 20 GM/30 ML UDCUP TUBE SCH (08:03)
[2017-05-07] MEDS: PREGABALIN 150 MG CAP TUBE SCH (08:04)
[2017-05-07] MEDS: lamoTRIgine 100 MG TAB TUBE SCH (08:04)
[2017-05-07] MEDS: SERTRALINE HCL 100 MG TAB TUBE SCH (08:05)
[2017-05-07] MEDS: busPIRone 15 MG TAB TUBE SCH (08:05)
[2017-05-07] MEDS: ENOXAPARIN 40 MG/0.4 ML SYR SC SCH (08:05)
[2017-05-07 11:22] VITALS: BP 119/64; RESP 17; TEMP 97.5; O2SAT 93
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
[2017-05-07] MEDS ORDERED: ACETAMINOPHEN 325 MG TAB PO PRN (11:35)
--- NOTE | 2017-05-07 11:37 | PDIAF ---
- Diagnosis Diagnosis: multisystem trauma Code Status: Full Code - Medication Management Discharge Medications: Medications to Continue on Transfer Ezogabine [Potiga] 200 mg PO BID 04/27/17 [Last Taken Unknown] Famotidine [Pepcid 20 MG (*)] 20 mg PO HS 04/27/17 [Last Taken Unknown] Fluticasone Nasal [Flonase Nasal [place]] 1 sprays NASAL DAILY PRN 04/27/17 [Last Taken Unknown] Ibandronate Sodium [Boniva] 150 mg PO Q30D 04/27/17 [Last Taken Unknown] Lactulose [Enulose] 15 ml PO Q2D 04/27/17 [Last Taken Unknown] Levothyroxine [Synthroid 50 mcg (*)] 50 mcg PO DAILY06 04/27/17 [Last Taken Unknown] Omeprazole 40 mg PO DAILY 04/27/17 [Last Taken Unknown] Pregabalin [Lyrica] 150 mg PO BID 04/27/17 [Last Taken Unknown] Sertraline HCl [Zoloft 100mg (*)] 100 mg PO DAILY 04/27/17 [Last Taken Unknown] busPIRone [Buspar (*)] 15 mg PO BID 04/27/17 [Last Taken Unknown] lamoTRIgine [LamICTAL 100 MG (*)] 100 mg PO DAILY@09 MDD NAME BRAND 04/27/17 [ Last Taken Unknown] lamoTRIgine [Lamictal] 200 mg PO HS 04/27/17 [Last Taken Unknown] Albuterol [Proventil Neb] 3 ml IH QID #0 deyvial 05/07/17 [Last Taken Unknown] Alteplase [Cathflo Activase 2 mg (*)] 2 mg IVP PRN PRN #0 vial 05/07/17 [Last Taken Unknown] Enoxaparin [Lovenox 40 MG (*)] 40 mg SC DAILY #0 syr 05/07/17 [Last Taken Unknown] Ertapenem [INVanz] 1 gm IV DAILY #0 vial 05/07/17 [Last Taken Unknown] Famotidine 20 mg/NaCl [Pepcid 20 mg (Premix)] 20 ml IV DAILY #0 bag 05/07/17 [ Last Taken Unknown] Melatonin [Melatonin 3 MG (*)] 1.5 mg TUBE HS #0 tab 05/07/17 [Last Taken Unknown] Naloxone HCl [Narcan] 0.4 mg IVP PRN PRN #0 inj 05/07/17 [Last Taken Unknown] morphINE [morphINE 4 mg/ml inj (*)] 2 - 4 mg IVP Q1 PRN #0 syr 05/07/17 [Last Taken Unknown] oxyCODONE IR [Oxycodone Ir (*)] 5 - 10 mg TUBE Q4 PRN #0 tab 05/07/17 [Last Taken Unknown] Fpc Antibiotics: ivone Fpc Antibiotic Stop Date: 05/12/17 Discharge Medications: Refer to the Discharge Home Medication list for PRN reason. PICC Care - Routine: Yes - Orders Diet Texture: Dysphagia 2 - Mechanically Altered - Chopped, Ground, Dysphagia 1 - Pureed, Meds Whole w/Liquids Calixto: Yes Activity/Weight Bearing Restrictions: wbat - Follow Up Care Current Providers and Referrals: NIRMAL,HORACE [Other] Brandon Mosley MD [Medical Doctor] - (3 weeks) Tayo Frankel MD [Medical Doctor] - (3 weeks)
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
[2017-05-07] MEDS ORDERED: FUROSEMIDE 20 MG/2 ML VIAL IVP ONE (12:02)
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
== END 2017-05-07 14:48 | DRG 552 ==
LOC: F2N 17:44
PROVIDERS: ADMIT Surgery; ATTEND Surgery
PROC: 0HQ8XZZ Repair Buttock Skin, External Approach (ICD-10-PCS; principal; 2017-04-27)
PROC: 0HQ3XZZ Repair Left Ear Skin, External Approach (ICD-10-PCS; principal; 2017-04-27)
PROC: 0HQKXZZ Repair Right Lower Leg Skin, External Approach (ICD-10-PCS; principal; 2017-04-27)
PROC: 30233N1 Transfusion of Nonautologous Red Blood Cells into Peripheral Vein, Percutaneous Approach (ICD-10-PCS; 2017-04-27)
PROC: 0DH67UZ Insertion of Feeding Device into Stomach, Via Natural or Artificial Opening (ICD-10-PCS; 2017-05-01)
PROC: 02HV33Z Insertion of Infusion Device into Superior Vena Cava, Percutaneous Approach (ICD-10-PCS; 2017-05-03)
DX: S32.11 Zone I fracture of sacrum (principal); S22.41XA Multiple fractures of ribs, right side, initial encounter for closed fracture; S22.32XA Fracture of one rib, left side, initial encounter for closed fracture; S32.018A Other fracture of first lumbar vertebra, initial encounter for closed fracture; S32.028A Other fracture of second lumbar vertebra, initial encounter for closed fracture; S32.058A Other fracture of fifth lumbar vertebra, initial encounter for closed fracture; S22.040A Wedge compression fracture of fourth thoracic vertebra, initial encounter for closed fracture; S32.301A Unspecified fracture of right ilium, initial encounter for closed fracture; S00.03XA Contusion of scalp, initial encounter; S92.515A Nondisplaced fracture of proximal phalanx of left lesser toe(s), initial encounter for closed fracture; K46.0 Unspecified abdominal hernia with obstruction, without gangrene; J90 Pleural effusion, not elsewhere classified; D62 Acute posthemorrhagic anemia; N39.0 Urinary tract infection, site not specified; B96.4 Proteus (mirabilis) (morganii) as the cause of diseases classified elsewhere; F89 Unspecified disorder of psychological development; M48.02 Spinal stenosis, cervical region; R09.02 Hypoxemia; D69.6 Thrombocytopenia, unspecified; E87.6 Hypokalemia; K59.00 Constipation, unspecified; K44.9 Diaphragmatic hernia without obstruction or gangrene; M41.9 Scoliosis, unspecified; G40.909 Epilepsy, unspecified, not intractable, without status epilepticus; Z96.643 Presence of artificial hip joint, bilateral; V58.6XXA Passenger in pick-up truck or van injured in noncollision transport accident in traffic accident, initial encounter; Y92.411 Interstate highway as the place of occurrence of the external cause
CPT/HCPCS: 82947-QW; 92610-GN; 96374; 97163-GP; 97167-GO; 97530-GO; 97530-GP; 97535-GO; C1751; G0480; G8978-GP-CN; G8979-GP-CK; G8987-GO-CN; G8988-GO-CK; G8989-GO-CM; G8996-GN-CJ; G8997-GN-CH; J0690; J1335; J1650; J1885; J1940; J1956; J3010; P9016; Q9967